=== PATIENT | male | born 1985 | race Hispanic/Latino ===

== ENCOUNTER 2019-06-17 14:28 | Emergency (ER) | payer SELFPAY ==
--- NOTE | 2019-06-17 15:40 | Event Note ---
ED Screening Note Date of service: 06/17/19 Time: 15:37 ED Screening Note: 33 y o male present for left flank pain x 2-3 days hx of kidney stone, denies n/v/d This initial assessment/diagnostic orders/clinical plan/treatment(s) is/are subject to change based on patients health status, clinical progression and re- assessment by fellow clinical providers in the ED. Further treatment and workup at subsequent clinical providers discretion. Patient/guardian urged not to elope from the ED as their condition may be serious if not clinically assessed and managed. Initial orders include: labs, ua, ct scan
[2019-06-17 16:17] LABS: Bilirubin,Urine NEG (Negative); Blood,Urine NEG (Negative); Calcium Oxalate Crystals,Urine 3+; Color,Urine Yellow (Yellow); Mucus,Urine 3+ /HPF; Protein,Urine <15 mg/dL mg/dL (Negative)
[2019-06-17] MEDS ORDERED: ONDANSETRON 4 MG/2 ML INJ IV ONE (16:19)
[2019-06-17] MEDS ORDERED: SODIUM CHLORIDE 0.9% 1000 ML 1,000 ML IV ONE (16:19)
[2019-06-17] MEDS ORDERED: KETOROLAC 30 MG/1 ML INJ IV ONE (16:19)
[2019-06-17 16:31] LABS: Basophils # (Auto) 0.1 K/mm3 (0.0-0.1); Basophils % (Auto) 0.9 % (0.0-1.8); Eosinophils # (Auto) 0.2 K/mm3 (0.0-0.4); Eosinophils % (Auto) 1.8 % (0.0-4.3); Hematocrit 43.4 % (35.5-45.6); Hemoglobin 14.6 gm/dl (11.8-15.2); Lymphocytes # (Auto) 1.9 K/mm3 (1.2-5.4); Lymphocytes % (Auto) 21.3 % (13.4-35.0); Mean Corpuscular HGB Conc 34 % (32-34); Mean Corpuscular Volume 86 fl (84-94); Monocytes # (Auto) 0.5 K/mm3 (0.0-0.8); Monocytes % (Auto) 5.5 % (0.0-7.3); Platelet Count 223 K/mm3 (140-440); Red Blood Count 5.04 M/mm3 (3.65-5.03)
[2019-06-17 16:40] LABS: Alanine Aminotransferase 12 units/L (7-56); Albumin 4.5 g/dL (3.9-5); BUN/Creatinine Ratio 13; Blood Urea Nitrogen 13 mg/dL (9-20); Calcium 9.3 mg/dL (8.4-10.2); Hemolysis Index 13
--- NOTE | 2019-06-17 17:08 | Cat Scan Report ---
CT abdomen pelvis wo con INDICATION: MAIN: Abdominal Pain WO CONTRAST LEFT SIDE. TECHNIQUE: All CT scans at this location are performed using CT dose reduction for ALARA by means of automated e xposure control. COMPARISON: None available. FINDINGS: Lung bases are clear. Gallbladder is mostly collapsed, with no obvious stones. Liver, spleen, and elise creas appear negative. 1 cm nonobstructing (possibly parenchymal) calculus in the left kidney. Kidney s and adrenals are otherwise negative. Abdominal aorta is normal in size. No adenopathy. Pelvis Normal appendix. Urinary bladder appears negative. No free fluid or inflammation. No obvious bowel ab normalities. IMPRESSION: 1. 1 cm nonobstructing left renal calculus. 2. No definite acute abnormalities. Signer Name: Paulo Guerrero MD Signed: 06/17/2019 5:04 PM Workstation Name: [id number]
--- NOTE | 2019-06-17 17:46 | Emergency Department Report ---
ED Male HPI - General Chief complaint: Abdominal Pain Stated complaint: LT SIDE FLANK PAIN Source: patient Mode of arrival: Ambulatory Limitations: No Limitations - History of Present Illness Initial comments: 33 yo male with PMH of kidney stones c/o of left flank pain x 3 days. Denies fever chills nausea and vomiting. Feels pressure when he urinates but is able to void freely. -: days(s) (3 days) Radiation: none denies other symptoms - Related Data Previous Rx's Medication Instructions Recorded Last Taken Type traMADoL [Ultram 50 MG tab] 50 mg PO Q6HR PRN #12 tablet 06/17/19 Unknown Rx Allergies Allergy/AdvReac Type Severity Reaction Status Date / Time No Known Allergies Allergy Unverified 06/17/19 14:43 ED Review of Systems ROS: Stated complaint: LT SIDE FLANK PAIN Other details as noted in HPI Comment: All other systems reviewed and negative Genitourinary: other (left flank pain ) ED Past Medical Hx - Past Medical History Previous Medical History?: No - Social History Smoking Status: Unknown if ever smoked - Medications Home Medications: Home Medications Medication Instructions Recorded Confirmed Last Taken Type traMADoL [Ultram 50 MG tab] 50 mg PO Q6HR PRN #12 tablet 06/17/19 Unknown Rx ED Physical Exam - General Limitations: No Limitations General appearance: alert, in no apparent distress - Head Head exam: Present: normal inspection - Eye Eye exam: Present: normal appearance - ENT ENT exam: Present: normal exam - Respiratory Respiratory exam: Present: normal lung sounds bilaterally - Cardiovascular Cardiovascular Exam: Present: regular rate, normal heart sounds - GI/Abdominal GI/Abdominal exam: Present: soft, normal bowel sounds. Absent: distended, tenderness, guarding, rebound, rigid - Back Exam Back exam: Present: normal inspection, CVA tenderness (L) - Neurological Exam Neurological exam: Present: alert, oriented X3 - Psychiatric Psychiatric exam: Present: normal affect - Skin Skin exam: Present: warm, dry, intact ED Course Vital Signs 06/17/19 14:43 Temperature 98.8 F Pulse Rate 110 H Respiratory 20 Rate Blood Pressure 159/100 O2 Sat by Pulse 98 Oximetry ED Medical Decision Making - Lab Data Result diagrams: 06/17/19 16:13 06/17/19 16:13 - Radiology Data Radiology results: report reviewed - Medical Decision Making CT ABD/PELVIS FINDINGS: Lung bases are clear. Gallbladder is mostly collapsed, with no obvious stones. Liver, spleen, and pancreas appear negative. 1 cm nonobstructing (possibly parenchymal) calculus in the left kidney. Kidneys and adrenals are otherwise negative. Abdominal aorta is normal in size. No adenopathy. Pelvis Normal appendix. Urinary bladder appears negative. No free fluid or inflammation. No obvious bowel abnormalities. IMPRESSION: 1. 1 cm nonobstructing left renal calculus. 2. No definite acute abnormalities Critical care attestation.: If time is entered above; I have spent that time in minutes in the direct care of this critically ill patient, excluding procedure time. ED Disposition Clinical Impression: Kidney stone on left side Disposition: DC- TO HOME OR SELFCARE Is pt being admited?: No Does the pt Need Aspirin: No Condition: Stable Instructions: Kidney Stones (ED) Additional Instructions: Increase oral fluid, Follow up wiht urologist or your PCP in 2-3 days. Return to ER for fever, increasing pain, fever or unable to urinate Prescriptions: traMADoL [Ultram 50 MG tab] 50 mg PO Q6HR PRN #12 tablet PRN Reason: Pain Referrals: EVANGELINA DAMIAN MD [Staff Physician] - 3-5 Days Time of Disposition: 17:55
[2019-06-17 17:52] VITALS: BP 128/79
== END 2019-06-17 18:20 | disposition home or self-care (01) ==
LOC: ED 14:28
DX: N20.0 Calculus of kidney (principal)
CPT/HCPCS: 36415; 74176; 80053; 81001; 85025; 96374; 96375; 99284; J1885; J2405; J7030